=== PATIENT | male | born 1960 | race Caucasian/White ===

== ENCOUNTER 2016-11-22 12:25 | Emergency (ER) | payer OTHER ==
--- NOTE | 2016-11-22 13:35 | ERPHSYRPT ---
- History of Present Illness Time Seen by Provider: 11/22/16 13:26 Source: patient Exam Limitations: no limitations Patient Subjective Stated Complaint: sob , cough productive green since last tuesday,also co aches, weakness,pt is poor historian Triage Nursing Assessment: pt alert, sob with excertion, skin w/d .chest diminished bs, states has been unable to take breathing treatments at home. no fever Physician History: The patient is a 56-year-old male with a friend complaining of cough, chills, shortness of breath, and body aches for 6 days. He did not get his influenza vaccination this year. He states he has a dry cough. His past medical history is significant for depression, GERD, hypertension, and COPD. Timing/Duration: day(s) (6) Cough Quality/Degree: moderate, dry cough Possible Cause: occasional episodes Modifying Factors: Improves With: activity, coughing Associated Symptoms: chills, cough Allergies/Adverse Reactions: No Known Drug Allergies Allergy (Verified 11/22/16 12:43) Home Medications: Lisinopril 20 mg [Zestril 20 MG] 20 mg PO DAILY 11/06/13 [History] Omeprazole 20 MG [Prilosec 20 mg] 2 tab PO DAILY 11/06/13 [History] Sertraline HCl [Zoloft] 2 tab PO QPM 11/06/13 [History] Trazodone HCl 50 mg [Desyrel 50 mg] 2 tab PO HS 11/06/13 [History] Albuterol 2.5 mg/3 ml Neb [Proventil 2.5 mg/3 ml Neb] 1 inh IN Q4HPRN PRN 07/12/16 [History] Fluticasone/Salmeterol [Advair 250-50 Diskus] 1 puff IN BID 07/12/16 [History] Ipratropium/Albuterol Sulfate [Combivent Inhaler] 4 puffs IN DAILY 07/12/16 [ History] Hx Tetanus, Diphtheria Vaccination/Date Given: No (2004) Hx Influenza Vaccination/Date Given: No Hx Pneumococcal Vaccination/Date Given: No Immunizations Up to Date: Yes - Review of Systems Constitutional: Chills Eyes: No Symptoms Ears, Nose, & Throat: No Symptoms Respiratory: Cough, Dyspnea on Exertion (DYKES) Cardiac: No Chest Pain, No Edema, No Syncope Abdominal/Gastrointestinal: No Abdominal Pain, No Nausea, No Vomiting, No Diarrhea Genitourinary Symptoms: No Dysuria Musculoskeletal: Arthralgias, No Back Pain, No Neck Pain Skin: No Rash Neurological: No Dizziness, No Focal Weakness, No Sensory Changes Psychological: No Symptoms Endocrine: No Symptoms Hematologic/Lymphatic: No Symptoms All Other Systems: Reviewed and Negative - Past Medical History Pertinent Past Medical History: Yes Neurological History: No Pertinent History ENT History: No Pertinent History Cardiac History: Hypertension, Other Respiratory History: Bronchitis, COPD Endocrine Medical History: No Pertinent History Musculoskeletal History: No Pertinent History GI Medical History: GERD, Hernia History: No Pertinent History Psycho-Social History: Depression Male Reproductive Disorders: No Pertinent History Other Medical History: PERICARDITIS BACK IN 1992 - Past Surgical History Past Surgical History: Yes Neuro Surgical History: No Pertinent History Cardiac: No Pertinent History Respiratory: No Pertinent History Gastrointestinal: Hernia Repair Genitourinary: No Pertinent History Musculoskeletal: Orthopedic Surgery Male Surgical History: No Pertinent History Other Surgical History: tripple a , neck, wrist, neck - Social History Smoking Status: Current every day smoker How long have you smoked: 1 Exposure to second hand smoke: Yes Alcohol Use: 3-4 per da Drug Use: none Patient Lives Alone: Yes - Nursing Vital Signs Nursing Vital Signs: Initial Vital Signs Temperature 97.3 F Temperature Source Oral Pulse Rate 85 Respiratory Rate 16 Blood Pressure [] 114/69 Pain Intensity 0 - Physical Exam General Appearance: no apparent distress, alert Eye Exam: PERRL/EOMI, eyes nml inspection Ears, Nose, Throat Exam: normal ENT inspection, TMs normal, pharynx normal, moist mucous membranes Neck Exam: normal inspection, non-tender, supple, full range of motion Respiratory Exam: diminished breath sounds, wheezing Cardiovascular Exam: regular rate/rhythm, normal heart sounds Gastrointestinal/Abdomen Exam: soft, No tenderness Rectal Exam: not done Back Exam: normal inspection, No CVA tenderness, No vertebral tenderness Extremity Exam: normal inspection, normal range of motion Neurologic Exam: alert, oriented x 3, cooperative, normal mood/affect, sensation nml, No motor deficits Skin Exam: normal color, warm, dry, No rash Lymphatic Exam: No adenopathy SpO2 Interpretation: normal SpO2: 96 Oxygen Delivery: Room Air - Radiology Exams Chest X-ray Interpretation: Teleradiologist Report (No new/acute findings per Dr Nevarez.) Ordered Tests: Active Orders 24 hr Category Date Time Status IV Insertion STAT Care 11/22/16 13:36 Active Pulse Oximetry (ED) STAT Care 11/22/16 13:36 Active CHEST 2 VIEWS (PA AND LAT) Stat Exams 11/22/16 13:36 Completed BLOOD CULTURE Stat Lab 11/22/16 13:56 Received BMP Stat Lab 11/22/16 13:45 Completed CBC W DIFF Stat Lab 11/22/16 13:45 Completed Manual Differential NC Stat Lab 11/22/16 13:45 Completed Respiratory Nebulizer STAT RT 11/22/16 13:37 Completed Medication Summary Discontinued Medications Generic Name Dose Route Start Last Admin Trade Name Freq PRN Reason Stop Dose Admin Albuterol/Ipratropium 3 ml 11/22/16 13:36 11/22/16 13:45 Duoneb 0.5-3 Mg/3 Ml Neb IH 11/22/16 13:37 3 ml STAT ONE Administration Albuterol/Ipratropium Confirm 11/22/16 13:44 Duoneb 0.5-3 Mg/3 Ml Neb Administered 11/22/16 13:45 Dose 3 ml IH .STK-MED ONE Methylprednisolone Sodium Succinate 125 mg 11/22/16 13:36 11/22/16 13:52 Solu-Medrol 125 Mg IV 11/22/16 13:37 125 mg STAT ONE Administration Methylprednisolone Sodium Succinate Confirm 11/22/16 13:51 Solu-Medrol 125 Mg Administered 11/22/16 13:52 Dose 125 mg .ROUTE .STK-MED ONE Lab/Rad Data: Laboratory Result Diagrams 11/22/16 13:45 11/22/16 13:45 Laboratory Results 11/22/16 11/22/16 11/22/16 Range/Units 13:56 13:45 13:45 WBC 3.7 L (4.0-10.5) K/mm3 RBC 4.10 (4.1-5.6) M/mm3 Hgb 12.6 (12.5-18.0) gm/dl Hct 35.7 L (42-50) % MCV 87.1 (78-100) fl MCH 30.7 (26-32) pg MCHC 35.3 (32-36) g/dl RDW 13.4 (11.5-14.0) % Plt Count 123 L (150-450) K/mm3 MPV 10.4 H (6-9.5) fl Segmented Neutrophils 55 (36.-66.) % Lymphocytes (Manual) 25 (24-44) % Monocytes (Manual) 14 H (0.0-12.0) % Basophils (Manual) 1 (0.0-1.0) % Differential Comment NORMAL Atypical Lymphocytes 5 % Platelet Estimate DECREASED (NORMAL) Sodium 140 (136-145) mEq/L Potassium 3.9 (3.5-5.1) mEq/L Chloride 102 (98-107) mEq/L Carbon Dioxide 24.7 (21-32) mEq/L Anion Gap 17.0 H (5-15) MEQ/L BUN 9 (9-20) mg/dL Creatinine 0.83 (0.55-1.30) mg/dl Estimated GFR > 60 ML/MIN Glucose 78 (70-110) MG/DL Calcium 8.6 (8.5-10.1) mg/dL Influenza Type A Ag NEGATIVE (NEGATIVE) Influenza Type B Ag NEGATIVE (NEGATIVE) RSV (PCR) NEGATIVE (Negative) - Progress Progress: improved Air Movement: good Blood Culture(s) Obtained: Yes Antibiotics given: No Counseled pt/family regarding: lab results, diagnosis, need for follow-up, rad results - Departure Time of Disposition: 15:27 Departure Disposition: Home Clinical Impression: Bronchitis, COPD with exacerbation Condition: Stable Critical Care Time: No Instructions: Chronic Obstructive Pulmonary Disease Additional Instructions: You have bronchitis and an exacerbation of COPD. Take augmentin, prednisone, and albuterol as directed. Follow up in 2 days. Prescriptions: Albuterol 2.5 mg/3 ml Neb [Proventil 2.5 mg/3 ml Neb] 2.5 mg IH Q4-6HPRN PRN #12 neb PRN Reason: Shortness Of Breath Amoxicillin/Potassium Clav [Augmentin 875-125 Tablet] 875 mg PO BID PRN #20 tablet Prednisone 10 mg [Deltasone 10 mg] 60 mg PO DAILY #30 tablet
[2016-11-22] MEDS ORDERED: solu-MEDROL 125 MG IV ONE (13:36)
[2016-11-22] MEDS ORDERED: DUONEB 0.5-3 MG/3 ml Neb IH ONE ×2 (13:36→13:44)
[2016-11-22] MEDS ORDERED: solu-MEDROL 125 MG ONE (13:51)
[2016-11-22 14:11] LABS: Mean Cell Volume 87.1 fl (78-100); Mean Corpuscular Hemoglobin 30.7 pg (26-32); Mean Platelet Volume 10.4 fl (6-9.5); Platelet Count 123 K/mm3 (150-450); Red Cell Distribution Width 13.4 % (11.5-14.0); White Blood Count 3.7 K/mm3 (4.0-10.5)
[2016-11-22 14:15] LABS: BLOOD UREA NITROGEN 9 mg/dL (9-20); CHLORIDE 102 mEq/L (98-107); Carbon Dioxide 24.7 mEq/L (21-32); Glucose 78 MG/DL (70-110); Potassium 3.9 mEq/L (3.5-5.1); SODIUM 140 mEq/L (136-145)
--- NOTE | 2016-11-22 14:18 | XRAY ---
Indication: Cough and short of breath. Comparison: June 04, 2015. PA/lateral chest unchanged again hyperinflated with left mid peripheral calcified granuloma, left costophrenic angle blunting, and right lung azygous lobe. Heart is not enlarged. No new/acute findings.
[2016-11-22 15:23] LABS: ATYPICAL LYMPHS 5 %; Basophil 1 % (0.0-1.0); Total Cells Counted 100
[2016-11-22 15:24] LABS: Platelet Estimate DECREASED (NORMAL)
[2016-11-22 15:32] VITALS: O2SAT 96
[2016-11-22 15:50] VITALS: BP 122/71; PULSE 92
== END 2016-11-22 15:50 | disposition home or self-care (01) ==
LOC: ED 12:25
DX: J40 Bronchitis, not specified as acute or chronic (principal); J44.1 Chronic obstructive pulmonary disease with (acute) exacerbation; R05 Cough; R06.02 Shortness of breath; F32.9 Major depressive disorder, single episode, unspecified; I10 Essential (primary) hypertension; Z79.899 Other long term (current) drug therapy
CPT/HCPCS: 36000; 36415; 71020; 80048; 85025; 87040; 87631; 94640; 96374; 99284; J2930